=== PATIENT | male | born 1980 | race Caucasian/White ===

== ENCOUNTER 2017-04-12 11:39 | Emergency (ER) | payer MEDICAID ==
[2017-04-12] MEDS ORDERED: Sodium Chloride 0.9% 1,000 ML IV SCH ×3 (11:45→15:00)
--- NOTE | 2017-04-12 11:46 | EDM.PDOC ---
ED HPI GENERAL MEDICAL PROBLEM - General Chief Complaint: Chest Pain Stated Complaint: CHEST PAIN Time Seen by Provider: 04/12/17 11:45 Source of Information: Reports: Patient History Limitations: Reports: No Limitations - History of Present Illness INITIAL COMMENTS - FREE TEXT/NARRATIVE: pt arrived hyperventilating markedly. He was very agitated on arrival. Onset: Today Duration: Hour(s): Location: Reports: Chest Associated Symptoms: Reports: Chest Pain, Other (pt was actively hyperventilating. ) Chest Pain Score (Numeric/FACES): 8 - Related Data Allergies Allergy/AdvReac Type Severity Reaction Status Date / Time diphtheria, pertussis, Allergy Cannot Verified 04/12/17 11:48 tetanus vacc Remember Home Meds: Home Meds NK [No Known Home Meds] 04/12/17 [History] ED ROS GENERAL - Review of Systems Review Of Systems: See Below Constitutional: Reports: No Symptoms HEENT: Reports: No Symptoms Respiratory: Reports: No Symptoms Cardiovascular: Reports: No Symptoms Endocrine: Reports: No Symptoms GI/Abdominal: Reports: No Symptoms : Reports: No Symptoms Musculoskeletal: Reports: No Symptoms Skin: Reports: No Symptoms ED EXAM, GENERAL - Physical Exam Exam: See Below Free Text/Narrative:: pt arrived with a complaint of chest pain and he was breathing very rapidly. Exam Limited By: No Limitations General Appearance: Alert, Anxious Ears: Normal TMs Nose: Normal Inspection Throat/Mouth: Normal Inspection Head: Atraumatic Neck: Normal Inspection Respiratory/Chest: Other (pt is obviously hyperventilating. ) Cardiovascular: Regular Rate, Rhythm GI/Abdominal: Soft, Non-Tender (Male) Exam: Deferred Rectal (Males) Exam: Deferred Back Exam: Normal Inspection Extremities: Normal Inspection Neurological: Alert, Oriented, Normal Cognition Psychiatric: Normal Affect Course - Vital Signs Last Recorded V/S: Last Vital Signs Temp 35.9 C 04/12/17 14:15 Pulse 59 L 04/12/17 11:44 Resp 20 04/12/17 16:20 BP 140/78 04/12/17 16:20 Pulse Ox 92 L 04/12/17 16:20 - Orders/Labs/Meds Orders: Active Orders 24 hr Category Date Time Status EKG Documentation Completion [RC] ASDIRECTED Care 04/12/17 15:03 Active Sodium Chloride 0.9% [Normal Saline] 1,000 ml Med 04/12/17 11:45 Active IV ASDIRECTED Sodium Chloride 0.9% [Normal Saline] 1,000 ml Med 04/12/17 13:45 Active IV ASDIRECTED Sodium Chloride 0.9% [Normal Saline] 1,000 ml Med 04/12/17 15:00 Active IV ASDIRECTED EKG 12 Lead [EK] Routine Ther 04/12/17 15:03 Ordered Medication Orders Sodium Chloride (Normal Saline) 1,000 mls @ 500 mls/hr IV ASDIRECTED ZINA Last Admin: 04/12/17 12:02 Dose: 500 mls/hr Sodium Chloride (Normal Saline) 1,000 mls @ 999 mls/hr IV ASDIRECTED ZINA Last Admin: 04/12/17 13:38 Dose: 999 mls/hr Sodium Chloride (Normal Saline) 1,000 mls @ 500 mls/hr IV ASDIRECTED ZINA Last Admin: 04/12/17 14:56 Dose: 500 mls/hr Labs: Laboratory Tests 04/12/17 04/12/17 04/12/17 Range/Units 11:40 11:40 11:40 WBC 10.4 (4.5-11.0) K/uL RBC 4.28 L (4.30-5.90) M/uL Hgb 13.1 (12.0-15.0) g/dL Hct 38.9 L (40.0-54.0) % MCV 91 (80-98) fL MCH 31 (27-31) pg MCHC 34 (32-36) % Plt Count 210 (150-400) K/uL Neut % (Auto) 69 H (36-66) % Lymph % (Auto) 21 L (24-44) % Hard[place] % (Auto) 9 H (2-6) % Eos % (Auto) 1 L (2-4) % Baso % (Auto) 0 (0-1) % Puncture Site ABG pH (7.350-7.450) ABG pCO2 (35.0-42.0) mmHg ABG pO2 (75.0-100.0) mmHg ABG HCO3 (22.0-26.0) mmol/L ABG Total CO2 (23.0-27.0) mmol/L ABG O2 Saturation (95.0-98.0) % ABG O2 Content (15.0-23.0) %vol ABG Base Excess mm/L ABG Hemoglobin (13.5-18.0) g/dL ABG Oxyhemoglobin % ABG Carboxyhemoglobin (0.0-1.6) % ABG Methemoglobin % Henry Test O2 Delivery Device Sodium 138 L (140-148) mmol/L Potassium 3.7 (3.6-5.2) mmol/L Chloride 106 (100-108) mmol/L Carbon Dioxide 22 (21-32) mmol/L Anion Gap 13.7 (5.0-14.0) mmol/L BUN 17 (7-18) mg/dL Creatinine 0.9 (0.8-1.3) mg/dL Est Cr Clr Drug Dosing 129.47 mL/min Estimated GFR (MDRD) > 60 (>60) Glucose 157 H (74-106) mg/dL Calcium 8.4 L (8.5-10.1) mg/dL Total Bilirubin 0.2 (0.2-1.0) mg/dL AST 21 (15-37) U/L ALT 40 (12-78) U/L Alkaline Phosphatase 88 (46-116) U/L Creatine Kinase 95 (39-308) U/L Troponin I < 0.017 (0.000-0.056) ng/mL Total Protein 7.3 (6.4-8.2) g/dL Albumin 3.4 (3.4-5.0) g/dL Globulin 3.9 H (2.3-3.5) g/dL Albumin/Globulin Ratio 0.9 L (1.2-2.2) Urine Color Urine Appearance Urine pH (4.5-8.0) Ur Specific [place] (1.008-1.030) Urine Protein (NEGATIVE) mg/dL Urine Glucose (UA) (NEGATIVE) mg/dL Urine Ketones (NEGATIVE) mg/dL Urine Occult Blood (NEGATIVE) Urine Nitrite (NEGAITVE) Urine Bilirubin (NEGATIVE) Urine Urobilinogen (NORMAL) mg/dL Ur Leukocyte Esterase (NEGATIVE) Urine RBC (0-5) Urine WBC (0-5) Ur Epithelial Cells Amorphous Sediment Urine Bacteria Urine Mucus Urine Opiates Screen (NEGATIVE) Ur Oxycodone Screen (NEGATIVE) Urine Methadone Screen (NEGATIVE) Ur Propoxyphene Screen (NEGATIVE) Ur Barbiturates Screen (NEGATIVE) Ur Tricyclics Screen (NEGATIVE) Ur Phencyclidine Scrn (NEGATIVE) Ur Amphetamine Screen (NEGATIVE) U Methamphetamines Scrn (NEGATIVE) Urine MDMA Screen (NEGATIVE) U Benzodiazepines Scrn (NEGATIVE) U Cocaine Metab Screen (NEGATIVE) U Marijuana (THC) Screen (NEGATIVE) Ethyl Alcohol mg/dL 04/12/17 04/12/17 04/12/17 Range/Units 11:42 12:57 13:37 WBC (4.5-11.0) K/uL RBC (4.30-5.90) M/uL Hgb (12.0-15.0) g/dL Hct (40.0-54.0) % MCV (80-98) fL MCH (27-31) pg MCHC (32-36) % Plt Count (150-400) K/uL Neut % (Auto) (36-66) % Lymph % (Auto) (24-44) % Hardeman % (Auto) (2-6) % Eos % (Auto) (2-4) % Baso % (Auto) (0-1) % Puncture Site Lt brachial ABG pH 7.551 H (7.350-7.450) ABG pCO2 20.9 L (35.0-42.0) mmHg ABG pO2 119.0 H (75.0-100.0) mmHg ABG HCO3 18.3 L (22.0-26.0) mmol/L ABG Total CO2 16.0 L (23.0-27.0) mmol/L ABG O2 Saturation 99.1 H (95.0-98.0) % ABG O2 Content 17.4 (15.0-23.0) %vol ABG Base Excess -2.1 mm/L ABG Hemoglobin 12.6 L (13.5-18.0) g/dL ABG Oxyhemoglobin 97.6 % ABG Carboxyhemoglobin 0.9 (0.0-1.6) % ABG Methemoglobin 0.6 % Henry Test Not performed O2 Delivery Device Room air Sodium (140-148) mmol/L Potassium (3.6-5.2) mmol/L Chloride (100-108) mmol/L Carbon Dioxide (21-32) mmol/L Anion Gap (5.0-14.0) mmol/L BUN (7-18) mg/dL Creatinine (0.8-1.3) mg/dL Est Cr Clr Drug Dosing mL/min Estimated GFR (MDRD) (>60) Glucose (74-106) mg/dL Calcium (8.5-10.1) mg/dL Total Bilirubin (0.2-1.0) mg/dL AST (15-37) U/L ALT (12-78) U/L Alkaline Phosphatase (46-116) U/L Creatine Kinase (39-308) U/L Troponin I (0.000-0.056) ng/mL Total Protein (6.4-8.2) g/dL Albumin (3.4-5.0) g/dL Globulin (2.3-3.5) g/dL Albumin/Globulin Ratio (1.2-2.2) Urine Color Urine Appearance Urine pH (4.5-8.0) Ur Specific [place] (1.008-1.030) Urine Protein (NEGATIVE) mg/dL Urine Glucose (UA) (NEGATIVE) mg/dL Urine Ketones (NEGATIVE) mg/dL Urine Occult Blood (NEGATIVE) Urine Nitrite (NEGAITVE) Urine Bilirubin (NEGATIVE) Urine Urobilinogen (NORMAL) mg/dL Ur Leukocyte Esterase (NEGATIVE) Urine RBC (0-5) Urine WBC (0-5) Ur Epithelial Cells Amorphous Sediment Urine Bacteria Urine Mucus Urine Opiates Screen Negative (NEGATIVE) Ur Oxycodone Screen Negative (NEGATIVE) Urine Methadone Screen Negative (NEGATIVE) Ur Propoxyphene Screen Negative (NEGATIVE) Ur Barbiturates Screen Negative (NEGATIVE) Ur Tricyclics Screen Negative (NEGATIVE) Ur Phencyclidine Scrn Negative (NEGATIVE) Ur Amphetamine Screen Positive H (NEGATIVE) U Methamphetamines Scrn Positive H (NEGATIVE) Urine MDMA Screen Positive H (NEGATIVE) U Benzodiazepines Scrn Negative (NEGATIVE) U Cocaine Metab Screen Negative (NEGATIVE) U Marijuana (THC) Screen Positive H (NEGATIVE) Ethyl Alcohol < 3 mg/dL 04/12/17 Range/Units 13:37 WBC (4.5-11.0) K/uL RBC (4.30-5.90) M/uL Hgb (12.0-15.0) g/dL Hct (40.0-54.0) % MCV (80-98) fL MCH (27-31) pg MCHC (32-36) % Plt Count (150-400) K/uL Neut % (Auto) (36-66) % Lymph % (Auto) (24-44) % Hardeman % (Auto) (2-6) % Eos % (Auto) (2-4) % Baso % (Auto) (0-1) % Puncture Site ABG pH (7.350-7.450) ABG pCO2 (35.0-42.0) mmHg ABG pO2 (75.0-100.0) mmHg ABG HCO3 (22.0-26.0) mmol/L ABG Total CO2 (23.0-27.0) mmol/L ABG O2 Saturation (95.0-98.0) % ABG O2 Content (15.0-23.0) %vol ABG Base Excess mm/L ABG Hemoglobin (13.5-18.0) g/dL ABG Oxyhemoglobin % ABG Carboxyhemoglobin (0.0-1.6) % ABG Methemoglobin % Henry Test O2 Delivery Device Sodium (140-148) mmol/L Potassium (3.6-5.2) mmol/L Chloride (100-108) mmol/L Carbon Dioxide (21-32) mmol/L Anion Gap (5.0-14.0) mmol/L BUN (7-18) mg/dL Creatinine (0.8-1.3) mg/dL Est Cr Clr Drug Dosing mL/min Estimated GFR (MDRD) (>60) Glucose (74-106) mg/dL Calcium (8.5-10.1) mg/dL Total Bilirubin (0.2-1.0) mg/dL AST (15-37) U/L ALT (12-78) U/L Alkaline Phosphatase (46-116) U/L Creatine Kinase (39-308) U/L Troponin I (0.000-0.056) ng/mL Total Protein (6.4-8.2) g/dL Albumin (3.4-5.0) g/dL Globulin (2.3-3.5) g/dL Albumin/Globulin Ratio (1.2-2.2) Urine Color Yellow Urine Appearance Slightly cloudy Urine pH 6.5 (4.5-8.0) Ur Specific [place] 1.020 (1.008-1.030) Urine Protein Negative (NEGATIVE) mg/dL Urine Glucose (UA) 50 H (NEGATIVE) mg/dL Urine Ketones Negative (NEGATIVE) mg/dL Urine Occult Blood Negative (NEGATIVE) Urine Nitrite Negative (NEGAITVE) Urine Bilirubin Negative (NEGATIVE) Urine Urobilinogen Normal (NORMAL) mg/dL Ur Leukocyte Esterase Negative (NEGATIVE) Urine RBC Not seen (0-5) Urine WBC 0-5 (0-5) Ur Epithelial Cells Few Amorphous Sediment Not seen Urine Bacteria Not seen Urine Mucus Few Urine Opiates Screen (NEGATIVE) Ur Oxycodone Screen (NEGATIVE) Urine Methadone Screen (NEGATIVE) Ur Propoxyphene Screen (NEGATIVE) Ur Barbiturates Screen (NEGATIVE) Ur Tricyclics Screen (NEGATIVE) Ur Phencyclidine Scrn (NEGATIVE) Ur Amphetamine Screen (NEGATIVE) U Methamphetamines Scrn (NEGATIVE) Urine MDMA Screen (NEGATIVE) U Benzodiazepines Scrn (NEGATIVE) U Cocaine Metab Screen (NEGATIVE) U Marijuana (THC) Screen (NEGATIVE) Ethyl Alcohol mg/dL Meds: Medications Generic Name Dose Route Start Last Admin Trade Name Freq PRN Reason Stop Dose Admin Sodium Chloride 1,000 mls @ 500 mls/hr 04/12/17 11:45 04/12/17 12:02 Normal Saline IV 500 mls/hr ASDIRECTED ZINA Administration Sodium Chloride 1,000 mls @ 999 mls/hr 04/12/17 13:45 04/12/17 13:38 Normal Saline IV 999 mls/hr ASDIRECTED ZINA Administration Sodium Chloride 1,000 mls @ 500 mls/hr 04/12/17 15:00 04/12/17 14:56 Normal Saline IV 500 mls/hr ASDIRECTED ZINA Administration Discontinued Medications Generic Name Dose Route Start Last Admin Trade Name Freq PRN Reason Stop Dose Admin Ketorolac Tromethamine 30 mg 04/12/17 14:20 04/12/17 14:27 Toradol IVPUSH 04/12/17 14:21 30 mg ONETIME ONE Administration Lorazepam 0.5 mg 04/12/17 11:54 04/12/17 12:03 Ativan IVPUSH 04/12/17 11:55 0.5 mg ONETIME ONE Administration Lorazepam 0.5 mg 04/12/17 12:17 04/12/17 12:24 Ativan IVPUSH 04/12/17 12:18 0.5 mg ONETIME ONE Administration - Re-Assessments/Exams Free Text/Narrative Re-Assessment/Exam: 04/12/17 14:45 2 liters of fluid was given to the pt. A drug screen was obtained which was positive for meth, amphetamines, and MDAM plus pot. This was discussed with him. 04/12/17 16:38 pt is more alert at this point and will be discharged home with his mother. Detox at [facility] was offered and he refused. Departure - Departure Time of Disposition: 16:41 Disposition: Home, Self-Care 01 Condition: Fair Clinical Impression: Acute hyperventilation, Methamphetamine use Referrals: PCP,None [Primary Care Provider] - Forms: ED Department Discharge Care Plan Goals: rtc if problems. push fluids, family to be around, consider treament in the future. - My Orders Last 24 Hours: My Active Orders 04/12/17 11:45 Sodium Chloride 0.9% [Normal Saline] 1,000 ml IV ASDIRECTED 04/12/17 13:45 Sodium Chloride 0.9% [Normal Saline] 1,000 ml IV ASDIRECTED 04/12/17 15:00 Sodium Chloride 0.9% [Normal Saline] 1,000 ml IV ASDIRECTED 04/12/17 15:03 EKG Documentation Completion [RC] ASDIRECTED EKG 12 Lead [EK] Routine - Assessment/Plan Last 24 Hours: My Active Orders 04/12/17 11:45 Sodium Chloride 0.9% [Normal Saline] 1,000 ml IV ASDIRECTED 04/12/17 13:45 Sodium Chloride 0.9% [Normal Saline] 1,000 ml IV ASDIRECTED 04/12/17 15:00 Sodium Chloride 0.9% [Normal Saline] 1,000 ml IV ASDIRECTED 04/12/17 15:03 EKG Documentation Completion [RC] ASDIRECTED EKG 12 Lead [EK] Routine
[2017-04-12] MEDS ORDERED: LORazepam 2 MG/ML MDV IVPUSH ONE ×2 (11:54→12:17)
--- NOTE | 2017-04-12 11:55 | CR ---
Heart size upper limits of normal. Pulmonary vasculature within normal limits. No focal consolidation . Minimal streaky density left lung base can indicate atelectasis.
[2017-04-12] MEDS ORDERED: Ketorolac 30 MG/ML SDV IVPUSH ONE (14:20)
[2017-04-12 16:20] VITALS: BP 140/78
== END 2017-04-12 17:01 | disposition home or self-care (01) ==
LOC: JP.ED 11:39
DX: R06.4 Hyperventilation (principal); F15.90 Other stimulant use, unspecified, uncomplicated; Z88.7 Allergy status to serum and vaccine
CPT/HCPCS: 36415; 36600; 71010; 80053; 80305; 81001; 82550; 82803; 84484; 85025; 93005; 93010; 96361; 96374; 96375; 99284; 99285; G0480; J1885; J2060; J7040

== ENCOUNTER 2020-01-13 18:23 | Emergency (ER) | payer MEDICAID ==
[2020-01-13] MEDS ORDERED: Ketorolac 30 MG/ML SDV IVPUSH ONE (19:34)
--- NOTE | 2020-01-13 19:34 | EDM.PDOC ---
ED HPI GENERAL MEDICAL PROBLEM - General Chief Complaint: Genitourinary Problem Stated Complaint: LT TESTICLE PAIN Time Seen by Provider: 01/13/20 18:45 Source of Information: Reports: Patient History Limitations: Reports: No Limitations - History of Present Illness INITIAL COMMENTS - FREE TEXT/NARRATIVE: 39-year-old male was lying down for a nap, felt fine but when he woke 2 hours later he had intense left testicular pain, groin pain, left lower abdominal pain and flank pain. No fevers or chills. Nausea but no vomiting. Onset: Sudden Duration: Hour(s): (2 hours ago) Location: Reports: Other (Left flank, left abdomen and left testicle) Associated Symptoms: Reports: Other (Nausea but no vomiting). Denies: Chest Pain, Cough, Diaphoresis, Fever/Chills, Shortness of Breath Left Scrotum Pain Score (Numeric/FACES): 8 - Related Data Allergies Allergy/AdvReac Type Severity Reaction Status Date / Time diphtheria, pertussis, Allergy Cannot Verified 07/04/18 17:24 tetanus vacc Remember Home Meds: Home Meds NK [No Known Home Meds] 04/12/17 [History] Past Medical History HEENT History: Reports: None Cardiovascular History: Reports: Afib, Arrhythmia Respiratory History: Reports: Pneumothorax Gastrointestinal History: Reports: None - Past Surgical History Head Surgeries/Procedures: Reports: None HEENT Surgical History: Reports: Adenoidectomy, Tonsillectomy Cardiovascular Surgical History: Reports: None Respiratory Surgical History: Reports: None GI Surgical History: Reports: Appendectomy Dermatological Surgical History: Reports: None Social & Family History - Tobacco Use Smoking Status *Q: Current Every Day Smoker Years of Tobacco use: 1 Packs/Tins Daily: 1 - Caffeine Use Caffeine Use: Reports: Soda - Recreational Drug Use Recreational Drug Use: Yes Drug Use in Last 12 Months: Yes Recreational Drug Type: Reports: Marijuana/Hashish Recreational Drug Use Frequency: Weekly ED ROS GENERAL - Review of Systems Review Of Systems: See Below Constitutional: Reports: Malaise. Denies: Fever, Chills HEENT: Reports: No Symptoms Respiratory: Reports: No Symptoms Cardiovascular: Reports: No Symptoms GI/Abdominal: Reports: Abdominal Pain (Left lower abdomen) : Reports: Other (Left testicular pain, some urgency) Musculoskeletal: Reports: No Symptoms Neurological: Reports: No Symptoms ED EXAM, GENERAL - Physical Exam Exam: See Below Exam Limited By: No Limitations General Appearance: Alert, Moderate Distress Head: Atraumatic Respiratory/Chest: No Respiratory Distress, Lungs Clear Cardiovascular: Regular Rate, Rhythm GI/Abdominal: Soft, Non-Tender (Male) Exam: No Hernia, Normal Inspection. No: Scrotum Tenderness (L), Scrotum Tenderness (R), Testicular Tenderness (L), Testicular Tenderness (R) Neurological: Alert, Oriented Psychiatric: Anxious Skin Exam: Warm, Dry Course - Vital Signs Last Recorded V/S: Last Vital Signs Temp 97.3 F 01/13/20 20:25 Pulse 90 01/13/20 20:25 Resp 17 01/13/20 20:25 BP 150/94 H 01/13/20 19:45 Pulse Ox 97 01/13/20 20:25 - Orders/Labs/Meds Meds: Medications Discontinued Medications Generic Name Dose Route Start Last Admin Trade Name Sally PRN Reason Stop Dose Admin Ketorolac Tromethamine 30 mg 01/13/20 19:34 01/13/20 19:43 Toradol IVPUSH 01/13/20 19:35 30 mg ONETIME ONE Administration Tamsulosin HCl 0.4 mg 01/13/20 20:16 01/13/20 20:25 Flomax PO 01/13/20 20:17 0.4 mg ONETIME ONE Administration - Re-Assessments/Exams Free Text/Narrative Re-Assessment/Exam: 01/13/20 23:48 The symptoms are present as a kidney stone. He was given 30 mg of IV Toradol which gave him marked improvement in his pain. A CT scan was done which confirmed a 2 mm stone at the left UPJ. When he was given 0.4 mg of oral Flomax and within 30 minutes his symptoms had completely resolved, he likely passed the stone as it was so small. If pain recurs he will try ibuprofen and return if symptoms are uncontrollable. Departure - Departure Time of Disposition: 21:25 Disposition: Home, Self-Care 01 Clinical Impression: Left nephrolithiasis - Discharge Information Instructions: Kidney Stones, [id number] Referrals: PCP,None [Primary Care Provider] - Forms: ED Department Discharge Care Plan Goals: If pain starts recurring, take ibuprofen for discomfort and return if uncontrolled. Resume regular intake of fluids and diet. Sepsis Event Note (ED) - Evaluation Sepsis Screening Result: No Definite Risk - Focused Exam Vital Signs: Vital Signs Temp Pulse Resp BP Pulse Ox 01/13/20 20:25 97.3 F 90 17 97 01/13/20 19:45 58 L 20 150/94 H 99 01/13/20 18:50 96.5 F L 75 20 172/106 H 98
[2020-01-13 19:45] VITALS: BP 150/94
[2020-01-13] MEDS ORDERED: Tamsulosin 0.4 MG Cap.ER PO ONE (20:16)
[2020-01-13 20:28] VITALS: PULSE 90
--- NOTE | 2020-01-13 20:34 | CRLCT ---
INDICATION: Left-sided flank pain. COMPARISON: None available TECHNIQUE: CT examination of the abdomen and pelvis was performed without contrast enhancement using 2 mm thick axial sections from the lung bases through the pubic symphysis. Oral contrast was not administered. Please note that all CT scans at this facility use dose modulation, iterative reconstruction, and/or weight-based dosing when appropriate to reduce radiation dose to as low as reasonably achievable. FINDINGS: There is mild left hydronephrosis and left hydroureter produced by a 2 millimeter calculus located at the UVJ. There is no sign of any additional left renal or ureteral calculus. There is no sign of any calculus or obstruction on the right. There is a 3.0 centimeter cyst arising from the upper pole of the right kidney. The unenhanced kidneys are otherwise normal in appearance. In the abdomen, the unenhanced liver, spleen, pancreas, and left adrenal are normal in appearance. There is a 1.8 x 1.2 centimeter low-density nodule in the right adrenal gland consistent with an adrenal adenoma. The gallbladder is normal in appearance. The abdominal aorta is normal in caliber with no sign of dilatation. There is no sign of retroperitoneal mass or adenopathy. The stomach, loops of small bowel, and colon in the abdomen are normal in appearance. In the pelvis, the appendix is nonvisualized, but there is no sign of an inflammatory process in the area of the appendix. The loops of small bowel and colon in the pelvis are normal in appearance. The prostate is normal in appearance. The urinary bladder is normal in appearance. There is no sign of pelvic or inguinal mass or adenopathy. There is no sign of free air or free fluid in the abdomen or pelvis. There is a 9 millimeter pleural nodule in the posterior-lateral left lower lobe on axial image 6 series 2. This is nonspecific and can be followed using Fleischner society criteria. There is mild linear density in the posterior-lateral left lower lobe consistent with atelectasis. There is moderate L4-5 and L5-S1 disc degenerative disease with moderate diffuse disc bulging with posterior osteophytic ridging, probably resulting in spinal stenosis. There is minimal scoliosis of the lumbar spine convex towards the left. IMPRESSION: Mild left hydronephrosis and hydroureter produced by a 2 millimeter calculus located at the left UVJ. CT of the abdomen shows no sign of any additional renal or ureteral calculi. 3.0 centimeter cyst in the upper pole of the left kidney. Otherwise normal CT of the pelvis without contrast. Please note that all CT scans at this facility use dose modulation, iterative reconstruction, and/or weight-based dosing when appropriate to reduce radiation dose to as low as reasonably achievable. Dictated by Raul Murillo MD @ Jan 13 2020 8:27PM Signed by Dr. Raul Murillo @ Jan 13 2020 8:33PM
== END 2020-01-13 21:28 | disposition home or self-care (01) ==
LOC: JP.ED 18:23
DX: N13.2 Hydronephrosis with renal and ureteral calculous obstruction (principal); I48.91 Unspecified atrial fibrillation; F17.210 Nicotine dependence, cigarettes, uncomplicated; Z88.7 Allergy status to serum and vaccine
CPT/HCPCS: 74176; 96374; 99284; A9270; J1885